=== PATIENT | male | born 1995 | race Caucasian/White ===

== ENCOUNTER 2018-08-15 14:38 | Emergency (ER) | END 2018-08-15 16:47 | disposition home or self-care (01) ==

== ENCOUNTER 2018-12-22 10:31 | Emergency (ER) | payer OTHER ==
[~2018-12-22] VITALS: Ht 167.6 cm; Wt 97.9 kg
[~2018-12-22 10:31] MED LIST: LORA-441 PO; TERB250T46
[2018-12-22 10:33] VITALS: BP 152/91; PULSE 86; RESP 16; Ht 167.6 cm; Wt 97.9 kg
[2018-12-22] MEDS ORDERED: SOD CHLORIDE 0.9% 1,000 ML IV STA (10:54)
[2018-12-22] MEDS ORDERED: KETOROLAC 15 MG INJ IV STA (10:54)
[2018-12-22] MEDS ORDERED: BISM-34 PO (12:28)
[2018-12-22] MEDS ORDERED: NAPR-985 PO (12:28)
--- NOTE | 2018-12-22 12:49 | ERD ---
ER Documentation Chief Complaint Chief Complaint constipation and diarrhea x2 wks denies ap HPI Patient is a 23-year-old male with no significant past medical history presenting to the emergency department complaining of left flank and left lower quadrant abdominal pain intermittently for the past 3 weeks. Pain is intermittent and currently rated 3/10 in severity. Patient has had no nausea, vomiting, fevers, hard stools, hematuria, or other symptoms at this time. Additionally, the patient states he went to a local clinic and was prescribed Bentyl and antibiotics approximately 1 week ago but he noticed no improvement of his symptoms. ROS All systems reviewed and are negative except as per history of present illness. Medications Home Meds Active Scripts Bismuth Subsalicylate* (Bismuth Subsalicylate*) 262 Mg/15 Ml Oral.susp, 15 ML PO Q6 PRN for DIARRHEA, #1 BOTTLE Prov:MEAGAN LINTON PA-C 12/22/18 Naproxen* (Naprosyn*) 500 Mg Tablet, 500 MG PO BID PRN for PAIN AND/OR INFLAMMATION, #30 TAB Prov:MEAGAN LINTON PA-C 12/22/18 Lorazepam* (Ativan*) 0.5 Mg Tablet, 0.5 MG PO Q8 for 3 Days, #10 TAB Prov:MIRIAM ARCINIEGA MD 08/15/18 Reported Medications Terbinafine* (Lamisil*) 250 Mg Tablet 01/14/10 Allergies Allergies: Coded Allergies: No Known Allergies (Verified Allergy, Mild, 12/22/18) PMhx/Soc Medical and Surgical Hx: pt denies Medical Hx, pt denies Surgical Hx History of Surgery: No Anesthesia Reaction: No Hx Neurological Disorder: No Hx Respiratory Disorders: No Hx Cardiac Disorders: No Hx Psychiatric Problems: No Hx Miscellaneous Medical Probl: No Hx Alcohol Use: Yes (rarely) Hx Substance Use: No Hx Tobacco Use: No Smoking Status: Never smoker FmHx Family History: No diabetes Physical Exam Vitals Vital Signs Date Temp Pulse Resp B/P (MAP) Pulse Ox O2 O2 Flow FiO2 Time Delivery Rate 12/22/18 97.9 86 16 152/91 98 10:33 (111) Physical Exam Const: No acute distress Head: Atraumatic Eyes: Normal Conjunctiva ENT: Normal External Ears, Nose and Mouth. Neck: Full range of motion. No meningismus. Resp: Clear to auscultation bilaterally Cardio: Regular rate and rhythm, no murmurs Abd: Soft, mild subjective tenderness to palpation of the left lower quadrant, no rebound tenderness or guarding, no McBurney's point tenderness, non distended. Normal bowel sounds Skin: No petechiae or rashes Back: No midline or flank tenderness Ext: No cyanosis, or edema Neur: Awake and alert Psych: Normal Mood and Affect Result Diagram: 12/22/18 1114 12/22/18 1114 Results 24 hrs Laboratory Tests Test 12/22/18 10:54 12/22/18 11:14 Stool Occult Blood NEGATIVE White Blood Count 8.1 10^3/ul Red Blood Count 5.50 10^6/ul Hemoglobin 16.2 g/dl Hematocrit 47.9 % Mean Corpuscular Volume 87.1 fl Mean Corpuscular Hemoglobin 29.5 pg Mean Corpuscular Hemoglobin Concent 33.8 g/dl Red Cell Distribution Width 12.3 % Platelet Count 264 10^3/UL Mean Platelet Volume 10.7 fl Immature Granulocytes % 0.400 % Neutrophils % 56.0 % Lymphocytes % 31.7 % Monocytes % 10.3 % Eosinophils % 1.1 % Basophils % 0.5 % Nucleated Red Blood Cells % 0.0 /100WBC Immature Granulocytes # 0.030 10^3/ul Neutrophils # 4.6 10^3/ul Lymphocytes # 2.6 10^3/ul Monocytes # 0.8 10^3/ul Eosinophils # 0.1 10^3/ul Basophils # 0.0 10^3/ul Nucleated Red Blood Cells # 0.0 10^3/ul Prothrombin Time 12.3 Sec Prothrombin Time Ratio 1.0 INR International Normalized Ratio 0.90 Activated Partial Thromboplast Time 35.6 Sec Urine Color YELLOW Urine Clarity CLEAR Urine pH 6.0 Urine Specific Farley 1.014 Urine Ketones NEGATIVE mg/dL Urine Nitrite NEGATIVE mg/dL Urine Bilirubin NEGATIVE mg/dL Urine Urobilinogen NEGATIVE mg/dL Urine Leukocyte Esterase NEGATIVE Laury/ul Urine Hemoglobin NEGATIVE mg/dL Urine Glucose NEGATIVE mg/dL Urine Total Protein NEGATIVE mg/dl Sodium Level 141 mmol/L Potassium Level 3.9 mmol/L Chloride Level 105 mmol/L Carbon Dioxide Level 32 mmol/L Anion Gap 4 Blood Urea Nitrogen 14 mg/dl Creatinine 0.92 mg/dl Est Glomerular Filtrat Rate mL/min > 60 mL/min Glucose Level 75 mg/dl Calcium Level 9.5 mg/dl Total Bilirubin 0.5 mg/dl Direct Bilirubin 0.00 mg/dl Indirect Bilirubin 0.5 mg/dl Aspartate Amino Transf (AST/SGOT) 26 IU/L Alanine Aminotransferase (ALT/SGPT) 30 IU/L Alkaline Phosphatase 80 IU/L Total Protein 8.4 g/dl Albumin 4.7 g/dl Globulin 3.70 g/dl Albumin/Globulin Ratio 1.27 Lipase 55 U/L Current Medications Medications Dose Sig/Janessa Start Time Status Last (Trade) Ordered Route PRN Stop Time Admin Dose Reason Admin Sodium 1,000 ml @ Q1H STAT 12/22/18 DC Chloride 1,000 mls/hr IV 10:54 12/22/18 11:01 Ketorolac 15 mg ONCE STAT 12/22/18 DC Tromethamine IV 10:54 12/22/18 (Toradol) 11:01 [place] [id number] Radiology Main Line: [phone] DIAGNOSTIC IMAGING REPORT Patient: EVELIN VICK : 1995 Age: 23 Sex: M MR #: [id number] DOS: 12/22/18 1054 Ordering MD: MEAGAN LINTON PA-C Location: [facility] Room/Bed: PROCEDURE: CT Abdomen and pelvis without contrast. CLINICAL INDICATION: Left-sided flank pain for 2 weeks TECHNIQUE: CT scan of the abdomen and pelvis without contrast was performed on a multidetector high-resolution CT scan. . Coronal and sagittal reformatted images were obtained from the axial source images. Standard CT scan of the abdomen pelvis without contrast protocols were performed. The total exam CTDI equals 18.23 mGy and the total exam DLP equals 1096.01 mGy- cm. One or more of the following dose reduction techniques were used: - Automated exposure control. - Adjustment of the mA and/or kV according to patient size. Use of iterative reconstruction technique. Dicom images are available COMPARISON: None. FINDINGS: The kidneys are normal in size without calcified calculi, hydronephrosis or intra renal masses bilaterally. No evidence ureteral dilatation or calculi. Contracted otherwise unremarkable urinary bladder. Prostate unremarkable. Stomach, small bowel, large bowel and appendix are unremarkable. No evidence of intra-abdominal free air, free fluid, abscesses or lymphadenopathy. Liver spleen pancreas adrenal glands and gallbladder unremarkable. No evidence biliary ductal dilation. Lung bases unremarkable. Aorta unremarkable. Abdominal pelvic wall unremarkable. Osseous structures unremarkable. IMPRESSION: 1. No calcified urinary calculi or obstructive uropathy. 2. No gastrointestinal disease. 3. No intra-abdominal free air fluid abscesses or lymphadenopathy. RPTAT:AAJJ Physician Constantin Date Time Electronically viewed and signed by Physician Constantin on 12/22/2018 11:47 BM/ CC: MEAGAN LINTON PA-C [phone] Procedures/MDM Patient is a 23-year-old male presenting to the emergency department complaining of left lower quadrant and left flank pain. Patient did have some subjective tenderness to palpation of the left lower quadrant and therefore I did obtain a workup. Patient declined pain medication in the department. CBC: no e/o of systemic infection or severe anemia CMP: no e/o severe acidosis, alkalosis, renal failure, diabetic ketoa cidosis, liver disease Lipase: no e/o pancreatitis PT/INR: normal coagulation Urine: no e/o acute infection or hematuria Medical decision making: Patient symptoms may be secondary to gastroenteritis or musculoskeletal etiology. Much lower suspicion for acute surgical abdomen, diverticulitis, mesenteric ischemia, toxic megacolon, acute appendicitis, acute cholecystitis, or other emergent pathology. Patient's gastrointestinal symptoms have stabilized while in the department. No evidence of severe dehydration, sepsis, or surgical abdomen. Extensive discussion with family and patient that occult disease cannot be ruled out. 8 hour recheck for repeat abdominal exam is planned. No evidence of life-threatening pathology at time of discharge. Pt/family in agreement with discharge plan/diagnosis. Pt/family advised to return immediately with any new or worsening symptoms. Follow-up with primary care physician within the next 1-2 days. Patient's blood pressure was elevated (>120/80) but appears stable without evidence of hypertension emergency or urgency. The patient is to follow-up and pursue outpatient monitoring and therapy with their primary care physician within 1 week and return immediately if they have any new, worsening, or concerning symptoms. Disclaimer: Inadvertent spelling and grammatical errors are likely due to EHR/dictation software use and do not reflect on the overall quality of patient care. Also, please note that the electronic time recorded on this note does not necessarily reflect the actual time of the patient encounter. Departure Diagnosis: Primary Impression: Abdominal pain Abdominal location: generalized Qualified Codes: R10.84 - Generalized abdominal pain Additional Impression: Diarrhea Diarrhea type: unspecified type Qualified Codes: R19.7 - Diarrhea, un specified Condition: Fair Patient Instructions: Abdominal Pain, Treating Diarrhea Referrals: [facility] YOU HAVE RECEIVED A MEDICAL SCREENING EXAM AND THE RESULTS INDICATE THAT YOU DO NOT HAVE A CONDITION THAT REQUIRES URGENT TREATMENT IN THE EMERGENCY DEPARTMENT. FURTHER EVALUATION AND TREATMENT OF YOUR CONDITION CAN WAIT UNTIL YOU ARE SEEN IN YOUR DOCTORS OFFICE WITHIN THE NEXT 1-2 DAYS. IT IS YOUR RESPONSIBILITY TO MAKE AN APPOINTMENT FOR FOLOW-UP CARE. IF YOU HAVE A PRIMARY DOCTOR --you should call your primary doctor and schedule an appointment IF YOU DO NOT HAVE A PRIMARY DOCTOR YOU CAN CALL OUR PHYSICIAN REFERRAL HOTLINE AT IF YOU CAN NOT AFFORD TO SEE A PHYSICIAN YOU CAN CHOSE FROM THE FOLLOWING [facility] [address] [facility]. [facility] [address] [facility]. [facility] [address] [facility] [facility] [address] [facility]. [facility] [address] [facility]. [facility]. [address] Additional Instructions: Call your primary care doctor TOMORROW for an appointment during the next 1-2 days.See the doctor sooner or return here if your condition worsens before your appointment time. SPECIALIST: YOU HAVE A MEDICAL CONDITION WHICH REQUIRES YOU TO SEE A SP ECIALIST WITHIN THE NEXT 1-2 DAYS. PLEASE FOLLOW UP WITH YOUR PRIMARY PHYSICIAN FOR REFFERAL.IF YOU DO NOT HAVE A PRIMARY CARE PHYSICIAN AND/OR YOU CAN NOT AFFORD TO SEE A PHYSICIAN THE FOLLOWING RESOURCES HAVE BEEN SUPPLIED TO YOU. IT IS YOUR RESPONSIBILITY TO BE SEEN BY THE SPECIALIST: GASTROENTEROLOGY MEAGAN LINTON PA-C Dec 22, 2018 12:49
== END 2018-12-22 12:41 | disposition home or self-care (01) ==
LOC: FTE 10:31
DX: R10.84 Generalized abdominal pain (principal)
CPT/HCPCS: 36415; 74176; 80053; 81003; 82270; 83690; 85025; 85610; 85730; 99284; J7030